=== PATIENT | male | born 1940 | race Caucasian/White ===

== ENCOUNTER 2022-03-21 11:50 | Observation (INO) | payer MEDICARE, SELFPAY ==
[2022-03-21] VITALS (22 sets, daily range): BP systolic 132–162; BP diastolic 70–86; PULSE 56–94; RESP 12–20; TEMP 36–36.2; O2SAT 92–100
--- NOTE | ~2022-03-21 | XR_ITS ---
EXAMINATION: XR chest 2V DATE: 03/21/2022 12:24 INDICATION: Altered mental status TECHNIQUE: frontal and lateral views of the chest were obtained. COMPARISON: None FINDINGS: Costochondral calcification project over the lower lung zones. The lungs are clear with no focal airs pace opacities, pulmonary edema, pleural effusion or pneumothorax. The cardiomediastinal silhouette i s normal. 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 IMPRESSION: 1. No acute cardiopulmonary disease. Reviewed, dictated and finalized at location B.
--- NOTE | ~2022-03-21 | CT_ITS ---
EXAMINATION: CT brain wo con INDICATION: Altered mental status COMPARISON: None TECHNIQUE: Standard unenhanced head CT. The dose-length product (DLP) was 605.33 mGy-cm. The mA was a djusted according to patient size. Iterative reconstruction technique was employed. FINDINGS: There is no acute intraparenchymal hemorrhage. No evidence of mass lesion. No evidence of a cute infarction. There is mild periventricular and subcortical hypodensity probably related to small vessel ischemic disease. There is mild prominence of the sulci and ventricles related to cerebral atr ophy. Intracranial calcified cerebral atherosclerosis is noted. There are no extra-axial collections. There is no mass effect or midline shift. The orbits and soft tissues are unremarkable. The visualiz ed sinuses and mastoid air cells are well aerated. IMPRESSION: 1. No acute intracranial abnormality. 2. Age related findings. Reviewed, dictated and finalized at location A.
--- NOTE | ~2022-03-21 | MR_ITS ---
EXAMINATION: MR brain/brain stem wo con DATE: 03/24/2022 08:12 INDICATION: Altered mental status. TECHNIQUE: Magnetic resonance imaging (MRI) of the brain and brainstem was performed without intraven ous contrast. 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 There are scattered areas of nonspeci fic increased T2-weighted signal intensity in the cerebral white matter, which is within normal limit s for the patient's age. There is no intracranial hemorrhage, acute infarction, or abnormal intracran ial mass lesion. The ventricles are normal in size. There is mild mucosal thickening in the paranasal sinuses. There are likely changes of ocular lens replacement surgeries. The mastoid air cells are no rmal. IMPRESSION: 1. 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 Reviewed, dictated and finalized at location A.
--- NOTE | 2022-03-21 12:04 | ECG_ITS ---
Measurements Intervals [place] Rate: 75 P: 57 NE: 203 QRS: 8 QRSD: 89 T: 56 QT: 419 QTc: 469 Interpretive Statements SINUS RHYTHM WITH OCCASIONAL VENTRICULAR PREMATURE COMPLEXES NO PREVIOUS ECG AVAILABLE FOR COMPARISON Electronically Signed On 03-22-2022 14:32:40 CDT by Diana De La Cruz M.D.
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
--- NOTE | 2022-03-21 12:14 | PC.NURSE ---
Daughter of patient lives in [place]. [phone]
[2022-03-21 12:22] LABS: Basophils Percent Auto 0.4 % (0.2-1.2); Eosinophils Absolute Auto 0.1 K/mm3 (0-0.3); Eosinophils Percent Auto 0.5 % (0-4.4); Hematocrit 42.1 % (42.0-52.0); Hemoglobin 13.4 g/dL (14.0-18.0); Immature Granulocyte Absolute 0.03 K/mm3 (0.00-0.031); Immature Granulocyte Percent A 0.3 % (0-0.5); Lymphocytes Absolute Auto 1.84 K/mm3 (0.9-3.2); Lymphocytes Percent Auto 18.9 % (18.3-44.2); Mean Corpuscular HGB Conc 31.8 g/dl (32-36); Mean Corpuscular Hemoglobin 31.3 pg (26-34); Mean Corpuscular Volume 98.4 fl (80-100); Mean Platelet Volume 10.2 fl (7.4-10.4); Monocytes Absolute Auto 0.8 K/mm3 (0.1-0.6); Monocytes Percent Auto 8.1 % (2.6-8.5); Neutrophils Percent Auto 71.8 % (45.5-73.1); Platelet Count Result 250 k/mm3 (150-375); Red Blood Count 4.28 M/mm3 (4.6-6.20); Red Cell Distribution Width 13.7 % (11.5-14.5); White Blood Count 9.7 K/mm3 (4.5-10.0)
[2022-03-21 12:29] LABS: Ammonia < 9 umol/L (9-30)
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
[2022-03-21 12:31] LABS: Alanine Aminotransferase 18 U/L (6-50); Albumin Level 4.2 g/dL (3.5-5.1); Alkaline Phosphatase 76 U/L (38-126); Anion Gap 23 mmol/L (8-16); Aspartate Amino Transferase 33 U/L (17-59); Bilirubin,Total 1.3 mg/dL (0.2-1.3); Blood Urea Nitrogen 17 mg/dL (9-20); Calcium 9.5 mg/dL (8.4-10.2); Carbon Dioxide 15 mmol/L (22-30); Chloride 105 mmol/L (98-107); Creatine Kinase 172 U/L (55-170); Estimated Glomerular Filt Rate > 60; Glucose 82 mg/dL (65-110); Potassium 3.5 mmol/L (3.4-5.0); Sodium 143 mmol/L (137-145)
[2022-03-21 12:32] LABS: Acetaminophen < 10 ug/mL (10-30); Ethanol < 10 mg/dL (<10); Salicylate < 1.0 mg/dL (2-20)
[2022-03-21 12:33] LABS: INR 1.1; Prothrombin Time 13.6 Seconds (11.1-14.7)
[2022-03-21] MEDS: SODIUM CHLORIDE 0.9% IV 1,000 ML 999 ML IV CONT ×2 (12:38→13:53)
[2022-03-21 12:43] LABS: Troponin I < 0.012 ng/mL (0.000-0.034)
[2022-03-21 12:45] LABS: Lactic Acid Reflex 1.9 mmol/L (0.7-2.0)
[2022-03-21 12:52] LABS: Glucose Point of Care 66 mg/dl (65-105)
[2022-03-21 13:02] LABS: Thyroid Stimulating Hormone 0.515 uIU/mL (0.465-4.680)
--- NOTE | 2022-03-21 13:13 | PC.NURSE ---
catracho chips fruit and drink given to patient at this time
[2022-03-21 14:10] LABS: SARS-CoV-2 RNA PCR Negative
[2022-03-21 14:33] LABS: Add Urine Microscopic? YES; Appearance Urine Clear (Clear); Bilirubin Urine Negative (Negative); Blood Urine 2+ (Negative); Color Urine Yellow (Yellow); Glucose Urine UA Negative (Negative); Ketones Urine 2+ mg/dL (Negative); Leukocyte Esterase Ur Negative LEU/UL (Negative); Mucus Urine Rare /lpf; Nitrate Urine Negative (Negative); Protein Urine 1+ mg/dL (Negative); RBC Urine >75 /hpf (0-2); Urobilinogen Urine Negative mg/dL (<2.0); WBC Urine 0-3 /hpf
[2022-03-21 14:55] LABS: Barbiturate Screen Urine Negative (Negative)
[2022-03-21 14:57] LABS: Amphetamine Screen Urine Negative (Negative); Cannabinoid Screen Urine Negative (Negative); Cocaine Screen Urine Negative (Negative); Methadone Screen Urine Negative (Negative); Opiate Screen Urine Negative (Negative); Phencyclidine Screen Urine Negative (Negative)
--- NOTE | 2022-03-21 15:06 | PCCCNOTE ---
Tay Kim, number: [phone] is only current contact information.
[2022-03-21 15:07] LABS: Benzodiazepines Screen Urine Negative (Negative)
--- NOTE | 2022-03-21 16:29 | PC.NURSE ---
Attempt to call daughter, Kim, who lives in [place] to assist with pt admission. Call directed to voicemail without answer.
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
--- NOTE | 2022-03-22 00:23 | PC.NURSE ---
Pt admitted today for confusion. Pt states that he wants us to help him find his wallet and phone. Pt is estranged from family so care coordination will be working on finding placement. Pt can be impulsive. Pt uses call light but does not wait for staff to come help. Pt is on bed alarm zone 2. Will continue to monitor pt.
[2022-03-22 05:34] VITALS: BP 124/75; PULSE 74; RESP 16; TEMP 36.8; O2SAT 100
[2022-03-22 06:29] LABS: Basophils Percent Auto 0.4 % (0.2-1.2); Eosinophils Absolute Auto 0.2 K/mm3 (0-0.3); Eosinophils Percent Auto 2.5 % (0-4.4); Hematocrit 35.8 % (42.0-52.0); Hemoglobin 11.5 g/dL (14.0-18.0); Immature Granulocyte Absolute 0.04 K/mm3 (0.00-0.031); Immature Granulocyte Percent A 0.6 % (0-0.5); Lymphocytes Absolute Auto 1.26 K/mm3 (0.9-3.2); Lymphocytes Percent Auto 17.8 % (18.3-44.2); Mean Corpuscular HGB Conc 32.1 g/dl (32-36); Mean Corpuscular Hemoglobin 30.7 pg (26-34); Mean Corpuscular Volume 95.5 fl (80-100); Mean Platelet Volume 10.3 fl (7.4-10.4); Monocytes Absolute Auto 0.7 K/mm3 (0.1-0.6); Monocytes Percent Auto 9.5 % (2.6-8.5); Neutrophils Absolute Auto 4.9 K/mm3 (1.3-6.7); Neutrophils Percent Auto 69.2 % (45.5-73.1); Platelet Count Result 181 k/mm3 (150-375); Red Blood Count 3.75 M/mm3 (4.6-6.20); Red Cell Distribution Width 13.5 % (11.5-14.5); White Blood Count 7.1 K/mm3 (4.5-10.0)
[2022-03-22 06:45] LABS: Lactic Acid Reflex 0.7 mmol/L (0.7-2.0)
[2022-03-22 06:53] LABS: Alanine Aminotransferase 15 U/L (6-50); Albumin Level 3.3 g/dL (3.5-5.1); Alkaline Phosphatase 67 U/L (38-126); Anion Gap 9 mmol/L (8-16); Aspartate Amino Transferase 30 U/L (17-59); Bilirubin,Total 0.9 mg/dL (0.2-1.3); Blood Urea Nitrogen 9 mg/dL (9-20); Calcium 8.7 mg/dL (8.4-10.2); Carbon Dioxide 21 mmol/L (22-30); Chloride 111 mmol/L (98-107); Estimated Glomerular Filt Rate > 60; Glucose 76 mg/dL (65-110); Magnesium 1.7 mg/dL (1.6-2.3); Potassium 4.6 mmol/L (3.4-5.0); Sodium 141 mmol/L (137-145)
[2022-03-22] MEDS: SODIUM CHLORIDE 0.9% IV 1,000 ML 100 ML IV CONT (06:58)
[2022-03-22 07:35] LABS: Thyroid Stimulating Hormone Reflex 0.689 uIU/mL (0.465-4.68)
--- NOTE | 2022-03-22 13:01 | PC.NURSE ---
Call received from Dr. Zhang. Pt seen over the weekend, ok to be taken care of outpatient.
[2022-03-22 14:00] VITALS: BP 132/62; PULSE 61; RESP 16; TEMP 36.9; O2SAT 100
--- NOTE | 2022-03-22 17:37 | PM.IMPN ---
Progress Note: A&P Assessment and Plan (1) Dementia: Code(s): F03.90 - Unspecified dementia, unspecified severity, without behavioral disturbance, psychotic disturbance, mood disturbance, and anxiety Status: Acute Assessment and Plan: Unknown mental baseline, patient appears to be pleasantly demented without any acute delirium, does not appear to be competent to make decisions regarding his health and a safe discharge is unable to be completed at this time. CT head negative for any abnormality. Complete workup negative for any acute, reversible causes of dementia. Will consult Neurology to confirm no acute etiology to patient's mentation. May need psychiatry workup as well to leave early define competence. Plan Called and spoke with daughter and son, below: Kim [phone] Jm [phone] Patient has been estranged from his family for years, was in a long-term relationship with a girlfriend who recently dumped him. Currently has no one significant in his life who can make decisions for him and children are not interested in being guardians at this time. Therefore, patient will need to be deemed legally incompetent, possibly by Psychiatry and the legal guardian will need to be placed who can be patient's power of compliance aide. At that time, patient will need to establish residence in [place], confirm Medicare enrollment, and be placed in a memory care facility. I anticipate that an ethics committee will need to be initiated to start the process for this patient's guardianship and ultimately get him a safe discharge. DVT prophylaxis with SCDs GI prophylaxis not indicated Code status full code Subjective Date/time seen: 03/22/22 17:37 Interval history: Patient pleasantly confused, requesting to go home today. Per chart and nursing staff, patient does not have a home in [place] or [place], he is from [place]. No overnight events noted. No chest pain or shortness of breath. No nausea, vomiting or diarrhea. No fevers or chills. Review of Systems Review of Systems: ROS unobtainable: Yes unobtainable due to mental status Exam Narrative: General: No acute distress, alert and oriented to self, unsure of baseline HEENT: Atraumatic, normocephalic, mucous membranes moist CV: Regular rate and rhythm, S1, S2 Lungs: Clear to auscultation bilaterally, no rales or crackles noted, no wheezes, good air entry Abdomen: Soft, nontender, nondistended Extremities: Normal to inspection Skin: No rashes noted, no lesions or wounds seen Psych: Euthymic, normal affect Neuro: Cranial nerves 2-12 grossly intact, strength +5/5 upper and lower extremities bilaterally Objective Data Vital Signs Vital Signs: Vital Signs - 24 hr 03/21/22 21:13 03/21/22 20:01 03/22/22 05:34 Temperature 97.1 F L 98.2 F Pulse Rate 65 74 Respiratory Rate 20 16 Blood Pressure 132/70 124/75 Pulse Oximetry 100 100 Oxygen Delivery Room Air 03/22/22 08:00 03/22/22 14:00 Temperature 98.5 F Pulse Rate 61 Respiratory Rate 16 Blood Pressure 132/62 Pulse Oximetry 100 Oxygen Delivery Room Air Intake/Output Intake/Output: Intake & Output 03/19/22 03/20/22 03/21/22 03/22/22 23:59 23:59 23:59 23:59 Intake Total 2340 100 Balance 2340 100 Meds/Results Medications: Active Medications Generic Name Dose Route Start Last Admin Trade Name Freq PRN Reason Stop Dose Admin Acetaminophen 650 mg 03/21/22 14:05 Acetaminophen 325 Mg Tablet PO Q4H PRN Mild Pain (1-3) or Fever Sodium Chloride 1,000 mls @ 100 mls/hr 03/22/22 00:15 03/22/22 17:29 Normal Saline Iv IV CONT Not Given .Q10H [facility] Radiology Results: ITS Impressions Head CT 03/21/22 12:20 IMPRESSION: 1. No acute intracranial abnormality. 2. Age related findings. Chest X-Ray 03/21/22 12:28 IMPRESSION: 1. No acute cardiopulmonary disease. Labs Labs: Laboratory Results - last 24 hr
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
[2022-03-22 21:38] VITALS: BP 151/72; PULSE 75; RESP 20; TEMP 36.4; O2SAT 99
--- NOTE | 2022-03-23 00:27 | PC.NURSE ---
Pt continues to be impulsive. Pt no longer using call light when getting up. Education about the importance of using call light reinforced. Will continue to monitor pt.
[2022-03-23 06:00] VITALS: BP 137/69; PULSE 80; RESP 16; TEMP 36.3; O2SAT 96
[2022-03-23 06:32] LABS: Basophils Percent Auto 0.3 % (0.2-1.2); Eosinophils Absolute Auto 0.2 K/mm3 (0-0.3); Eosinophils Percent Auto 1.6 % (0-4.4); Hematocrit 37.8 % (42.0-52.0); Hemoglobin 12.3 g/dL (14.0-18.0); Immature Granulocyte Absolute 0.03 K/mm3 (0.00-0.031); Immature Granulocyte Percent A 0.3 % (0-0.5); Lymphocytes Absolute Auto 1.19 K/mm3 (0.9-3.2); Mean Corpuscular HGB Conc 32.5 g/dl (32-36); Mean Corpuscular Hemoglobin 30.8 pg (26-34); Mean Corpuscular Volume 94.5 fl (80-100); Mean Platelet Volume 10.4 fl (7.4-10.4); Monocytes Absolute Auto 0.6 K/mm3 (0.1-0.6); Monocytes Percent Auto 6.5 % (2.6-8.5); Neutrophils Absolute Auto 7.9 K/mm3 (1.3-6.7); Neutrophils Percent Auto 79.3 % (45.5-73.1); Platelet Count Result 182 k/mm3 (150-375); Red Cell Distribution Width 13.4 % (11.5-14.5); White Blood Count 9.9 K/mm3 (4.5-10.0)
[2022-03-23 06:48] LABS: Alanine Aminotransferase 15 U/L (6-50); Albumin Level 3.4 g/dL (3.5-5.1); Alkaline Phosphatase 72 U/L (38-126); Anion Gap 11 mmol/L (8-16); Aspartate Amino Transferase 27 U/L (17-59); Bilirubin,Total 0.9 mg/dL (0.2-1.3); Blood Urea Nitrogen 4 mg/dL (9-20); Calcium 8.7 mg/dL (8.4-10.2); Carbon Dioxide 22 mmol/L (22-30); Chloride 107 mmol/L (98-107); Estimated Glomerular Filt Rate > 60; Glucose 84 mg/dL (65-110); Potassium 3.6 mmol/L (3.4-5.0); Sodium 140 mmol/L (137-145)
[2022-03-23 07:54] LABS: Folic Acid 15.4 ng/mL (2.76->20); Vitamin B12 > 1000.0 pg/mL (239-931)
--- NOTE | 2022-03-23 09:47 | PM.IMPN ---
Progress Note: A&P Assessment and Plan (1) Dementia: Code(s): F03.90 - Unspecified dementia, unspecified severity, without behavioral disturbance, psychotic disturbance, mood disturbance, and anxiety Status: Acute Assessment and Plan: Unknown mental baseline, patient appears to be pleasantly demented without any acute delirium, does not appear to be competent to make decisions regarding his health and a safe discharge is unable to be completed at this time. CT head negative for any abnormality. Complete workup negative for any acute, reversible causes of dementia. Will consult Neurology to confirm no acute etiology to patient's mentation. B12, folate, TSH, ammonia all within normal limits, B1 level pending Plan 03/22/2022: Called and spoke with daughter and son, below: Kim [phone] Jm [phone] Patient has been estranged from his family for years, was in a long-term relationship with a girlfriend who recently dumped him. Currently has no one significant in his life who can make decisions for him and children are not interested in being guardians at this time. Therefore, patient will need to be deemed legally incompetent, possibly by Psychiatry and the legal guardian will need to be placed who can be patient's power of real estate associate attorney. At that time, patient will need to establish residence in [place], confirm Medicare enrollment, and be placed in a memory care facility. I anticipate that an ethics committee will need to be initiated to start the process for this patient's guardianship and ultimately get him a safe discharge. See care coordination note for further details. DVT prophylaxis with SCDs GI prophylaxis not indicated Code status full code Subjective Date/time seen: 03/23/22 09:47 Interval history: No overnight events noted. No chest pain or shortness of breath. No nausea, vomiting or diarrhea. No fevers or chills. Patient alert oriented to self only. He is asking when we can help him find a home. Review of Systems Review of Systems: 12 point review of systems was assessed and was negative except as noted in the HPI Exam Narrative: General: No acute distress, alert and oriented to self, unsure of baseline HEENT: Atraumatic, normocephalic, mucous membranes moist CV: Regular rate and rhythm, S1, S2 Lungs: Clear to auscultation bilaterally, no rales or crackles noted, no wheezes, good air entry Abdomen: Soft, nontender, nondistended Extremities: Normal to inspection Skin: No rashes noted, no lesions or wounds seen Psych: Euthymic, normal affect Neuro: Cranial nerves 2-12 grossly intact, strength +5/5 upper and lower extremities bilaterally Objective Data Vital Signs Vital Signs: Vital Signs - 24 hr 03/22/22 14:00 03/22/22 21:38 03/22/22 20:06 Temperature 98.5 F 97.5 F L Pulse Rate 61 75 Respiratory Rate 16 20 Blood Pressure 132/62 151/72 H Pulse Oximetry 100 99 Oxygen Delivery Room Air 03/23/22 06:00 Temperature 97.4 F L Pulse Rate 80 Respiratory Rate 16 Blood Pressure 137/69 Pulse Oximetry 96 Oxygen Delivery Intake/Output Intake/Output: Intake & Output 03/20/22 03/21/22 03/22/22 03/23/22 23:59 23:59 23:59 23:59 Intake Total 2340 220 200 Balance 2340 220 200 Meds/Results Medications: Active Medications Generic Name Dose Route Start Last Admin Trade Name Navjotq PRN Reason Stop Dose Admin Acetaminophen 650 mg 03/21/22 14:05 Acetaminophen 325 Mg Tablet PO Q4H PRN Mild Pain (1-3) or Fever Radiology Results: ITS Impressions Head CT 03/21/22 12:20 IMPRESSION: 1. No acute intracranial abnormality. 2. Age related findings. Chest X-Ray 03/21/22 12:28 IMPRESSION: 1. No acute cardiopulmonary disease. Labs Labs: Laboratory Results - last 24 hr 03/23/22 03/23/22 05:57 05:57 WBC 9.9 RBC 4.00 L Hgb 12.3 L Hct 37.8 L MCV 94.5 MCH 30.8 MCHC 32.5 RDW 13.4
[2022-03-23 14:00] VITALS: BP 144/81; PULSE 94; RESP 16; TEMP 36.8; O2SAT 96
[2022-03-23 22:00] VITALS: BP 136/71; PULSE 72; RESP 18; TEMP 36.1; O2SAT 98
[2022-03-24 06:00] VITALS: BP 137/57; PULSE 76; RESP 18; TEMP 36; O2SAT 98
[2022-03-24 06:45] LABS: Basophils Percent Auto 0.2 % (0.2-1.2); Eosinophils Absolute Auto 0.1 K/mm3 (0-0.3); Eosinophils Percent Auto 1.4 % (0-4.4); Hematocrit 39.7 % (42.0-52.0); Hemoglobin 12.8 g/dL (14.0-18.0); Immature Granulocyte Absolute 0.03 K/mm3 (0.00-0.031); Immature Granulocyte Percent A 0.3 % (0-0.5); Lymphocytes Absolute Auto 1.26 K/mm3 (0.9-3.2); Lymphocytes Percent Auto 12.8 % (18.3-44.2); Mean Corpuscular HGB Conc 32.2 g/dl (32-36); Mean Corpuscular Volume 96.1 fl (80-100); Monocytes Absolute Auto 0.7 K/mm3 (0.1-0.6); Monocytes Percent Auto 7.5 % (2.6-8.5); Neutrophils Absolute Auto 7.6 K/mm3 (1.3-6.7); Neutrophils Percent Auto 77.8 % (45.5-73.1); Platelet Count Result 174 k/mm3 (150-375); Red Blood Count 4.13 M/mm3 (4.6-6.20); Red Cell Distribution Width 13.7 % (11.5-14.5); White Blood Count 9.8 K/mm3 (4.5-10.0)
[2022-03-24 06:55] LABS: Alanine Aminotransferase 14 U/L (6-50); Albumin Level 3.3 g/dL (3.5-5.1); Alkaline Phosphatase 67 U/L (38-126); Anion Gap 12 mmol/L (8-16); Aspartate Amino Transferase 21 U/L (17-59); Blood Urea Nitrogen 5 mg/dL (9-20); Calcium 8.8 mg/dL (8.4-10.2); Carbon Dioxide 27 mmol/L (22-30); Chloride 102 mmol/L (98-107); Estimated CRCL calculation 74 ml/min; Estimated Glomerular Filt Rate > 60; Glucose 84 mg/dL (65-110); Sodium 141 mmol/L (137-145)
--- NOTE | 2022-03-24 10:19 | PM.IMPN ---
Progress Note: A&P Assessment and Plan (1) Dementia: Code(s): F03.90 - Unspecified dementia, unspecified severity, without behavioral disturbance, psychotic disturbance, mood disturbance, and anxiety Status: Acute Assessment and Plan: Unknown mental baseline, patient appears to be pleasantly demented without any acute delirium, does not appear to be competent to make decisions regarding his health and a safe discharge is unable to be completed at this time. CT head negative for any abnormality. Complete workup negative for any acute, reversible causes of dementia. Will consult Neurology to confirm no acute etiology to patient's mentation. B12, folate, TSH, ammonia all within normal limits, B1 level pending (2) Hypokalemia: Code(s): E87.6 - Hypokalemia Status: Acute Assessment and Plan: likely secondary to decreased p.o. intake, replete and recheck (3) Alcohol abuse: Code(s): F10.10 - Alcohol abuse, uncomplicated Status: Acute Assessment and Plan: no signs of withdrawal, continue to monitor (4) Hypertension: Code(s): I10 - Essential (primary) hypertension Status: Acute Assessment and Plan: controlled on no medications (5) Hyperlipidemia: Code(s): E78.5 - Hyperlipidemia, unspecified Status: Acute Assessment and Plan: will check lipid panel (6) Hypoalbuminemia: Code(s): E88.09 - Other disorders of plasma-protein metabolism, not elsewhere classified Status: Acute Assessment and Plan: albumin was normal upon admission, dropping since he has been here as well as associated hypokalemia, poor p.o. intake secondary to his dietary preference is not being met by our menu, will give diet supplement with meals, continue to monitor Plan 03/22/2022: Called and spoke with daughter and son, below: Kim [phone] Jm [phone] Patient has been estranged from his family for years, was in a long-term relationship with a girlfriend who recently dumped him. Currently has no one significant in his life who can make decisions for him and children are not interested in being guardians at this time. Therefore, patient will need to be deemed legally incompetent, possibly by Psychiatry and the legal guardian will need to be placed who can be patient's power of insurance attorney. At that time, patient will need to establish residence in [place], confirm Medicare enrollment, and be placed in a memory care facility. I anticipate that an ethics committee will need to be initiated to start the process for this patient's guardianship and ultimately get him a safe discharge. See care coordination note for further details. DVT prophylaxis with SCDs GI prophylaxis not indicated Code status full code Subjective Date/time seen: 03/24/22 10:19 Interval history: No overnight events noted. No chest pain or shortness of breath. No nausea, vomiting or diarrhea. No fevers or chills. Patient alert oriented to self only. He is asking when we can help him find a home. Review of Systems Review of Systems: 12 point review of systems was assessed and was negative except as noted in the HPI Exam Narrative: General: No acute distress, alert and oriented to self, unsure of baseline HEENT: Atraumatic, normocephalic, mucous membranes moist CV: Regular rate and rhythm, S1, S2 Lungs: Clear to auscultation bilaterally, no rales or crackles noted, no wheezes, good air entry Abdomen: Soft, nontender, nondistended Extremities: Normal to inspection Skin: No rashes noted, no lesions or wounds seen Psych: Euthymic, normal affect Neuro: Cranial nerves 2-12 grossly intact, strength +5/5 upper and lower extremities bilaterally Objective Data Vital Signs Vital Signs: Vital Signs - 24 hr 03/23/22 14:00 03/23/22 20:00 03/23/22 22:00 Temperature 98.3 F 97.0 F L Pulse Rate 94 72 Respiratory Rate 16 18 Blood Pressure 144/81 H
[2022-03-24] MEDS: POTASSIUM CHLORIDE 20 MEQ TABLET 40 MEQ PO (12:25)
[2022-03-24 14:00] VITALS: BP 136/72; PULSE 82; RESP 16; TEMP 36.7; O2SAT 99
[2022-03-24 21:36] VITALS: BP 148/75; PULSE 76; RESP 20; TEMP 36.6; O2SAT 98
[2022-03-25 04:40] VITALS: BP 138/72; PULSE 74; RESP 20; TEMP 36.6; O2SAT 96
[2022-03-25 09:36] LABS: Basophils Percent Auto 0.2 % (0.2-1.2); Eosinophils Absolute Auto 0.2 K/mm3 (0-0.3); Eosinophils Percent Auto 1.7 % (0-4.4); Hematocrit 38.6 % (42.0-52.0); Hemoglobin 12.4 g/dL (14.0-18.0); Immature Granulocyte Absolute 0.04 K/mm3 (0.00-0.031); Immature Granulocyte Percent A 0.4 % (0-0.5); Lymphocytes Absolute Auto 1.03 K/mm3 (0.9-3.2); Lymphocytes Percent Auto 11.1 % (18.3-44.2); Mean Corpuscular HGB Conc 32.1 g/dl (32-36); Mean Corpuscular Hemoglobin 30.3 pg (26-34); Mean Corpuscular Volume 94.4 fl (80-100); Mean Platelet Volume 11.3 fl (7.4-10.4); Monocytes Absolute Auto 0.6 K/mm3 (0.1-0.6); Monocytes Percent Auto 6.5 % (2.6-8.5); Neutrophils Absolute Auto 7.5 K/mm3 (1.3-6.7); Neutrophils Percent Auto 80.1 % (45.5-73.1); Platelet Count Result 178 k/mm3 (150-375); Red Blood Count 4.09 M/mm3 (4.6-6.20); Red Cell Distribution Width 13.5 % (11.5-14.5); White Blood Count 9.3 K/mm3 (4.5-10.0)
[2022-03-25 09:53] LABS: Alanine Aminotransferase 13 U/L (6-50); Albumin Level 3.4 g/dL (3.5-5.1); Alkaline Phosphatase 68 U/L (38-126); Anion Gap 10 mmol/L (8-16); Aspartate Amino Transferase 19 U/L (17-59); Blood Urea Nitrogen 8 mg/dL (9-20); Calcium 8.8 mg/dL (8.4-10.2); Carbon Dioxide 26 mmol/L (22-30); Chloride 103 mmol/L (98-107); Estimated CRCL calculation 74 ml/min; Estimated Glomerular Filt Rate > 60; Glucose 104 mg/dL (65-110); Potassium 3.6 mmol/L (3.4-5.0); Sodium 139 mmol/L (137-145)
--- NOTE | 2022-03-25 10:32 | PM.IMPN ---
Progress Note: A&P Assessment and Plan (1) Dementia: Code(s): F03.90 - Unspecified dementia, unspecified severity, without behavioral disturbance, psychotic disturbance, mood disturbance, and anxiety Status: Acute Assessment and Plan: Unknown mental baseline, patient appears to be pleasantly demented without any acute delirium, does not appear to be competent to make decisions regarding his health and a safe discharge is unable to be completed at this time. CT head negative for any abnormality. Complete workup negative for any acute, reversible causes of dementia. 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, stable (2) Hypokalemia: Code(s): E87.6 - Hypokalemia Status: Acute Assessment and Plan: Resolved, monitor (3) Alcohol abuse: Code(s): F10.10 - Alcohol abuse, uncomplicated Status: Acute Assessment and Plan: no signs of withdrawal, continue to monitor (4) Hypertension: Code(s): I10 - Essential (primary) hypertension Status: Acute Assessment and Plan: controlled on no medications (5) Hyperlipidemia: Code(s): E78.5 - Hyperlipidemia, unspecified Status: Acute Assessment and Plan: will check lipid panel (6) Hypoalbuminemia: Code(s): E88.09 - Other disorders of plasma-protein metabolism, not elsewhere classified Status: Acute Assessment and Plan: Improving with diet supplementation, monitor Plan 03/22/2022: Called and spoke with daughter and son, below: Kim [phone] Jm [phone] Patient has been estranged from his family for years, was in a long-term relationship with a girlfriend who recently dumped him. Currently has no one significant in his life who can make decisions for him and children are not interested in being guardians at this time. Therefore, patient will need to be deemed legally incompetent, possibly by Psychiatry and the legal guardian will need to be placed who can be patient's power of assistant county attorney. At that time, patient will need to establish residence in [place], confirm Medicare enrollment, and be placed in a memory care facility. I anticipate that an ethics committee will need to be initiated to start the process for this patient's guardianship and ultimately get him a safe discharge. See care coordination note for further details. DVT prophylaxis with SCDs GI prophylaxis not indicated Code status full code Subjective Date/time seen: 03/25/22 10:32 Interval history: No overnight events noted. No chest pain or shortness of breath. No nausea, vomiting or diarrhea. No fevers or chills. Review of Systems Review of Systems: 12 point review of systems was assessed and was negative except as noted in the HPI Exam Narrative: General: No acute distress, alert and oriented to self, unsure of baseline HEENT: Atraumatic, normocephalic, mucous membranes moist CV: Regular rate and rhythm, S1, S2 Lungs: Clear to auscultation bilaterally, no rales or crackles noted, no wheezes, good air entry Abdomen: Soft, nontender, nondistended Extremities: Normal to inspection Skin: No rashes noted, no lesions or wounds seen Psych: Euthymic, normal affect Neuro: Cranial nerves 2-12 grossly intact, strength +5/5 upper and lower extremities bilaterally Objective Data Vital Signs Vital Signs: Vital Signs - 24 hr 03/24/22 14:00 03/24/22 20:00 03/24/22 21:36 Temperature 98.1 F 97.8 F Pulse Rate 82 76 Respiratory Rate 16 20 Blood Pressure 136/72 148/75 H Pulse Oximetry 99 98 Oxygen Delivery Room Air 03/25/22 04:40 Temperature 97.8 F Pulse Rate 74 Respiratory Rate 20 Blood Pressure 138/72 Pulse Oximetry 96 Oxygen Delivery Intake/Output Intake/Output: Intake & Output 03/22/22 03/23/2203/11
[2022-03-25 11:52] LABS: Cholesterol 182 mg/dL (0-200); HDL Direct 48 mg/dL; Triglycerides 60 mg/dL (<150)
[2022-03-25 12:03] LABS: LDL Cholesterol Direct 127 mg/dL
[2022-03-25 13:40] VITALS: BP 128/64; PULSE 77; RESP 18; TEMP 36.7; O2SAT 97
[2022-03-25 21:24] VITALS: BP 154/86; PULSE 76; RESP 20; TEMP 36.6; O2SAT 97
[2022-03-25 23:41] LABS: Myoglobin, Urine <27 mcg/L (<28)
[2022-03-26 05:17] VITALS: BP 134/74; PULSE 80; RESP 16; TEMP 36.3; O2SAT 93
[2022-03-26 07:51] LABS: Basophils Percent Auto 0.3 % (0.2-1.2); Eosinophils Absolute Auto 0.3 K/mm3 (0-0.3); Eosinophils Percent Auto 3.2 % (0-4.4); Hematocrit 40.3 % (42.0-52.0); Hemoglobin 13.3 g/dL (14.0-18.0); Immature Granulocyte Absolute 0.03 K/mm3 (0.00-0.031); Immature Granulocyte Percent A 0.3 % (0-0.5); Lymphocytes Absolute Auto 1.44 K/mm3 (0.9-3.2); Lymphocytes Percent Auto 15.7 % (18.3-44.2); Mean Corpuscular Hemoglobin 31.7 pg (26-34); Mean Corpuscular Volume 96.2 fl (80-100); Mean Platelet Volume 11.4 fl (7.4-10.4); Monocytes Absolute Auto 0.6 K/mm3 (0.1-0.6); Monocytes Percent Auto 6.8 % (2.6-8.5); Neutrophils Absolute Auto 6.8 K/mm3 (1.3-6.7); Neutrophils Percent Auto 73.7 % (45.5-73.1); Platelet Count Result 193 k/mm3 (150-375); Red Blood Count 4.19 M/mm3 (4.6-6.20); Red Cell Distribution Width 13.5 % (11.5-14.5); White Blood Count 9.2 K/mm3 (4.5-10.0)
--- NOTE | 2022-03-26 08:04 | PM.IMPN ---
Progress Note: A&P Assessment and Plan (1) Dementia: Code(s): F03.90 - Unspecified dementia, unspecified severity, without behavioral disturbance, psychotic disturbance, mood disturbance, and anxiety Status: Acute Assessment and Plan: Unknown mental baseline, patient appears to be pleasantly demented without any acute delirium, does not appear to be competent to make decisions regarding his health and a safe discharge is unable to be completed at this time. CT head negative for any abnormality. Complete workup negative for any acute, reversible causes of dementia. 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, stable (2) Hypokalemia: Code(s): E87.6 - Hypokalemia Status: Acute Assessment and Plan: back down to 3.3, will replace and recheck, likely secondary to poor po intake here (3) Alcohol abuse: Code(s): F10.10 - Alcohol abuse, uncomplicated Status: Acute Assessment and Plan: no signs of withdrawal, continue to monitor (4) Hypertension: Code(s): I10 - Essential (primary) hypertension Status: Acute Assessment and Plan: controlled on no medications (5) Hyperlipidemia: Code(s): E78.5 - Hyperlipidemia, unspecified Status: Acute Assessment and Plan: will check lipid panel (6) Hypoalbuminemia: Code(s): E88.09 - Other disorders of plasma-protein metabolism, not elsewhere classified Status: Acute Assessment and Plan: Improving with diet supplementation, monitor Plan 03/22/2022: Called and spoke with daughter and son, below: Kim [phone] Jm [phone] Patient has been estranged from his family for years, was in a long-term relationship with a girlfriend who recently dumped him. Currently has no one significant in his life who can make decisions for him and children are not interested in being guardians at this time. Therefore, patient will need to be deemed legally incompetent, possibly by Psychiatry and the legal guardian will need to be placed who can be patient's power of workers compensation defense attorney. At that time, patient will need to establish residence in [place], confirm Medicare enrollment, and be placed in a memory care facility. I anticipate that an ethics committee will need to be initiated to start the process for this patient's guardianship and ultimately get him a safe discharge. See care coordination note for further details. DVT prophylaxis with SCDs GI prophylaxis not indicated Code status full code Subjective Date/time seen: 03/26/22 08:04 Interval history: No overnight events noted. No chest pain or shortness of breath. No nausea, vomiting or diarrhea. No fevers or chills. Review of Systems Review of Systems: 12 point review of systems was assessed and was negative except as noted in the HPI Exam Narrative: General: No acute distress, alert and oriented per baseline HEENT: Atraumatic, normocephalic, mucous membranes moist CV: Regular rate and rhythm, S1, S2 Lungs: Clear to auscultation bilaterally, no rales or crackles noted, no wheezes, good air entry Abdomen: Soft, nontender, nondistended Extremities: Normal to inspection Skin: No rashes noted, no lesions or wounds seen Psych: Euthymic, normal affect Objective Data Vital Signs Vital Signs: Vital Signs - 24 hr 03/25/22 13:40 03/25/22 20:00 03/25/22 21:24 Temperature 98.0 F 97.9 F Pulse Rate 77 76 Respiratory Rate 18 20 Blood Pressure 128/64 154/86 H Pulse Oximetry 97 97 Oxygen Delivery Room Air 03/26/22 05:17 Temperature 97.4 F L Pulse Rate 80 Respiratory Rate 16 Blood Pressure 134/74 Pulse Oximetry 93 Oxygen Delivery Intake/Output Intake/Output: Intake & Output 03/23/22 03/24/22 03/25/22 03/26/22 23:59 23:59 23:59 23:59 I
[2022-03-26 08:07] LABS: Alanine Aminotransferase 14 U/L (6-50); Albumin Level 3.4 g/dL (3.5-5.1); Alkaline Phosphatase 82 U/L (38-126); Anion Gap 8 mmol/L (8-16); Aspartate Amino Transferase 21 U/L (17-59); Bilirubin,Total 0.7 mg/dL (0.2-1.3); Blood Urea Nitrogen 7 mg/dL (9-20); Calcium 8.8 mg/dL (8.4-10.2); Carbon Dioxide 29 mmol/L (22-30); Chloride 100 mmol/L (98-107); Estimated CRCL calculation 74 ml/min; Estimated Glomerular Filt Rate > 60; Glucose 104 mg/dL (65-110); Potassium 3.3 mmol/L (3.4-5.0); Sodium 137 mmol/L (137-145)
[2022-03-26 13:21] VITALS: BP 116/72; PULSE 85; RESP 20; TEMP 36.4; O2SAT 96
[2022-03-26 21:41] VITALS: BP 129/78; PULSE 81; RESP 16; TEMP 37; O2SAT 96
[2022-03-27 06:00] VITALS: BP 131/66; PULSE 83; RESP 18; TEMP 36.6; O2SAT 86
[2022-03-27 06:37] LABS: Basophils Percent Auto 0.3 % (0.2-1.2); Eosinophils Absolute Auto 0.2 K/mm3 (0-0.3); Eosinophils Percent Auto 2.4 % (0-4.4); Hematocrit 40.2 % (42.0-52.0); Hemoglobin 12.9 g/dL (14.0-18.0); Immature Granulocyte Absolute 0.03 K/mm3 (0.00-0.031); Immature Granulocyte Percent A 0.5 % (0-0.5); Lymphocytes Absolute Auto 0.71 K/mm3 (0.9-3.2); Lymphocytes Percent Auto 10.8 % (18.3-44.2); Mean Corpuscular HGB Conc 32.1 g/dl (32-36); Mean Corpuscular Hemoglobin 30.9 pg (26-34); Mean Corpuscular Volume 96.4 fl (80-100); Mean Platelet Volume 11.4 fl (7.4-10.4); Monocytes Absolute Auto 0.6 K/mm3 (0.1-0.6); Monocytes Percent Auto 8.5 % (2.6-8.5); Neutrophils Absolute Auto 5.1 K/mm3 (1.3-6.7); Neutrophils Percent Auto 77.5 % (45.5-73.1); Platelet Count Result 191 k/mm3 (150-375); Red Blood Count 4.17 M/mm3 (4.6-6.20); Red Cell Distribution Width 13.5 % (11.5-14.5); White Blood Count 6.6 K/mm3 (4.5-10.0)
[2022-03-27 06:50] LABS: Alanine Aminotransferase 14 U/L (6-50); Albumin Level 3.2 g/dL (3.5-5.1); Alkaline Phosphatase 72 U/L (38-126); Anion Gap 9 mmol/L (8-16); Aspartate Amino Transferase 21 U/L (17-59); Bilirubin,Total 0.5 mg/dL (0.2-1.3); Blood Urea Nitrogen 7 mg/dL (9-20); Calcium 8.7 mg/dL (8.4-10.2); Carbon Dioxide 30 mmol/L (22-30); Chloride 100 mmol/L (98-107); Estimated CRCL calculation 74 ml/min; Estimated Glomerular Filt Rate > 60; Glucose 102 mg/dL (65-110); Potassium 3.1 mmol/L (3.4-5.0); Sodium 139 mmol/L (137-145)
[2022-03-27] MEDS: POTASSIUM CHLORIDE 20 MEQ TABLET 40 MEQ PO (09:07)
[2022-03-27] MEDS: ACETAMINOPHEN 325 MG TABLET 650 MG PO (09:07)
[2022-03-27] MEDS: POTASSIUM CHLORIDE INJ 40 MEQ in SODIUM CHLORIDE 0.9% IV 500 ML 130 MEQ IVPB (09:07)
--- NOTE | 2022-03-27 10:00 | PCNEURO ---
EEG on hold per Dr. Montenegro
[2022-03-27 15:00] VITALS: BP 119/65; PULSE 77; RESP 14; TEMP 36.8; O2SAT 93
--- NOTE | 2022-03-27 15:57 | PC.NURSE ---
Call from at Demetrio at [facility]. Rivas has been contacting his business asking about his car. Demetrio says that Solomon car is still at the [employer] in [place]. He was trying to help him get a rental car before he was admitted to the hospital, but realized he may not be oriented enough to be safe to drive a car. Stated he just wanted to make sure he was ok, and that if we were going to discharge him that he would gladly come get him and take him to his hotel. Unfortunately I was unable to give him information back. But told him I appreciated his call.
[2022-03-27 21:48] VITALS: BP 139/71; PULSE 83; RESP 16; TEMP 36.6; O2SAT 96
[2022-03-28 05:26] VITALS: BP 132/75; PULSE 88; RESP 24; TEMP 36.9; O2SAT 93
[2022-03-28 06:23] LABS: Basophils Percent Auto 0.5 % (0.2-1.2); Eosinophils Absolute Auto 0.2 K/mm3 (0-0.3); Eosinophils Percent Auto 2.7 % (0-4.4); Hematocrit 37.5 % (42.0-52.0); Hemoglobin 12.4 g/dL (14.0-18.0); Immature Granulocyte Absolute 0.02 K/mm3 (0.00-0.031); Immature Granulocyte Percent A 0.3 % (0-0.5); Lymphocytes Absolute Auto 0.94 K/mm3 (0.9-3.2); Lymphocytes Percent Auto 14.8 % (18.3-44.2); Mean Corpuscular HGB Conc 33.1 g/dl (32-36); Mean Corpuscular Hemoglobin 31.2 pg (26-34); Mean Corpuscular Volume 94.2 fl (80-100); Mean Platelet Volume 11.2 fl (7.4-10.4); Monocytes Absolute Auto 0.9 K/mm3 (0.1-0.6); Monocytes Percent Auto 13.7 % (2.6-8.5); Neutrophils Absolute Auto 4.3 K/mm3 (1.3-6.7); Platelet Count Result 182 k/mm3 (150-375); Red Blood Count 3.98 M/mm3 (4.6-6.20); Red Cell Distribution Width 13.4 % (11.5-14.5); White Blood Count 6.4 K/mm3 (4.5-10.0)
[2022-03-28 06:39] LABS: Alanine Aminotransferase 15 U/L (6-50); Alkaline Phosphatase 67 U/L (38-126); Anion Gap 11 mmol/L (8-16); Aspartate Amino Transferase 22 U/L (17-59); Bilirubin,Total 0.4 mg/dL (0.2-1.3); Blood Urea Nitrogen 8 mg/dL (9-20); Calcium 8.6 mg/dL (8.4-10.2); Carbon Dioxide 26 mmol/L (22-30); Chloride 103 mmol/L (98-107); Estimated CRCL calculation 74 ml/min; Estimated Glomerular Filt Rate > 60; Glucose 93 mg/dL (65-110); Potassium 3.7 mmol/L (3.4-5.0); Sodium 140 mmol/L (137-145)
--- NOTE | 2022-03-28 09:58 | PCNWS ---
Weekly nutritional screen. Patient is tolerating current Regular diet with adequate intake at 75% most meals, plus nutritional ice cream cups. No weight loss reported. No nutritional needs at this time.
--- NOTE | 2022-03-28 13:25 | PM.IMPN ---
Progress Note: A&P Assessment and Plan (1) Dementia: Code(s): F03.90 - Unspecified dementia, unspecified severity, without behavioral disturbance, psychotic disturbance, mood disturbance, and anxiety Status: Acute Assessment and Plan: Patient is at baseline mentation, stable for discharge since yesterday (2) Hypokalemia: Code(s): E87.6 - Hypokalemia Status: Acute Assessment and Plan: Resolved (3) Alcohol abuse: Code(s): F10.10 - Alcohol abuse, uncomplicated Status: Acute Assessment and Plan: Stable (4) Hypertension: Code(s): I10 - Essential (primary) hypertension Status: Acute Assessment and Plan: controlled on no medications (5) Hyperlipidemia: Code(s): E78.5 - Hyperlipidemia, unspecified Status: Acute Assessment and Plan: Stable (6) Hypoalbuminemia: Code(s): E88.09 - Other disorders of plasma-protein metabolism, not elsewhere classified Status: Acute Assessment and Plan: Stable Plan 03/22/2022: Called and spoke with daughter and son, below: Kim [phone] Jm [phone] Patient has been estranged from his family for years, was in a long-term relationship with a girlfriend who recently dumped him. Currently has no one significant in his life who can make decisions for him and children are not interested in being guardians at this time. Therefore, patient will need to be deemed legally incompetent, possibly by Psychiatry and the legal guardian will need to be placed who can be patient's power of pig casting machine operator. At that time, patient will need to establish residence in [place], confirm Medicare enrollment, and be placed in a memory care facility. I anticipate that an ethics committee will need to be initiated to start the process for this patient's guardianship and ultimately get him a safe discharge. See care coordination note for further details. Patient is medically safe for discharge since March 27, 2022. DVT prophylaxis with SCDs GI prophylaxis not indicated Code status full code Subjective Date/time seen: 03/27/22 13:25 Interval history: No overnight events noted. No chest pain or shortness of breath. No nausea, vomiting or diarrhea. No fevers or chills. Review of Systems Review of Systems: 12 point review of systems was assessed and was negative except as noted in the HPI Exam Narrative: General: No acute distress, alert and oriented per baseline HEENT: Atraumatic, normocephalic, mucous membranes moist CV: Regular rate and rhythm, S1, S2 Lungs: Clear to auscultation bilaterally, no rales or crackles noted, no wheezes, good air entry Abdomen: Soft, nontender, nondistended Extremities: Normal to inspection Skin: No rashes noted, no lesions or wounds seen Psych: Euthymic, normal affect Objective Data Vital Signs Vital Signs: Vital Signs - 24 hr 03/27/22 15:00 03/27/22 21:48 03/27/22 20:00 Temperature 98.3 F 97.9 F Pulse Rate 77 83 Respiratory Rate 14 16 Blood Pressure 119/65 139/71 Pulse Oximetry 93 96 Oxygen Delivery Room Air 03/28/22 05:26 Temperature 98.4 F Pulse Rate 88 Respiratory Rate 24 H Blood Pressure 132/75 Pulse Oximetry 93 Oxygen Delivery Intake/Output Intake/Output: Intake & Output 03/25/22 03/26/22 03/27/22 03/28/22 23:59 23:59 23:59 23:59 Intake Total 1780 1040 1260 50 Output Total 1250 200 Balance 530 1040 1060 50 Meds/Results Medications: Active Medications Generic Name Dose Route Start Last Admin Trade Name Freq PRN Reason Stop Dose Admin Acetaminophen 650 mg 03/21/22 14:05 03/27/22 09:07 Acetaminophen 325 Mg Tablet PO 650 mg Q4H PRN Administration Mild Pain (1-3) or Fever Radiology Results: ITS Impressions Head CT 03/21/22 12:20 IMPRESSION: 1. No acute intracranial abnormality. 2. Age related findings. Chest X-Ray 03/21/22 12:28 IMPRESSION: 1. No
[2022-03-28 14:00] VITALS: BP 129/74; PULSE 86; RESP 16; TEMP 37.3; O2SAT 92
[2022-03-28 22:00] VITALS: BP 129/74; PULSE 82; RESP 17; TEMP 37.1; O2SAT 94
[2022-03-29 06:00] VITALS: BP 136/76; PULSE 83; RESP 18; TEMP 37.3; O2SAT 94
[2022-03-29 06:37] LABS: Basophils Percent Auto 0.4 % (0.2-1.2); Eosinophils Absolute Auto 0.1 K/mm3 (0-0.3); Eosinophils Percent Auto 1.3 % (0-4.4); Hematocrit 38.5 % (42.0-52.0); Hemoglobin 12.6 g/dL (14.0-18.0); Immature Granulocyte Absolute 0.03 K/mm3 (0.00-0.031); Immature Granulocyte Percent A 0.4 % (0-0.5); Lymphocytes Absolute Auto 1.15 K/mm3 (0.9-3.2); Lymphocytes Percent Auto 15.4 % (18.3-44.2); Mean Corpuscular HGB Conc 32.7 g/dl (32-36); Mean Corpuscular Hemoglobin 31.4 pg (26-34); Mean Platelet Volume 10.7 fl (7.4-10.4); Monocytes Percent Auto 13.3 % (2.6-8.5); Neutrophils Absolute Auto 5.2 K/mm3 (1.3-6.7); Neutrophils Percent Auto 69.2 % (45.5-73.1); Platelet Count Result 190 k/mm3 (150-375); Red Blood Count 4.01 M/mm3 (4.6-6.20); Red Cell Distribution Width 13.5 % (11.5-14.5); White Blood Count 7.5 K/mm3 (4.5-10.0)
[2022-03-29 07:03] LABS: Alanine Aminotransferase 17 U/L (6-50); Albumin Level 3.1 g/dL (3.5-5.1); Alkaline Phosphatase 73 U/L (38-126); Anion Gap 7 mmol/L (8-16); Aspartate Amino Transferase 27 U/L (17-59); Bilirubin,Total 0.6 mg/dL (0.2-1.3); Blood Urea Nitrogen 12 mg/dL (9-20); Calcium 8.6 mg/dL (8.4-10.2); Carbon Dioxide 26 mmol/L (22-30); Chloride 103 mmol/L (98-107); Estimated CRCL calculation 64 ml/min; Estimated Glomerular Filt Rate > 60; Glucose 90 mg/dL (65-110); Sodium 136 mmol/L (137-145)
[2022-03-29 13:37] VITALS: BP 117/72; PULSE 89; RESP 18; TEMP 37.1; O2SAT 93
--- NOTE | 2022-03-29 15:58 | PM.IMPN ---
Progress Note: A&P Assessment and Plan (1) Dementia: Code(s): F03.90 - Unspecified dementia, unspecified severity, without behavioral disturbance, psychotic disturbance, mood disturbance, and anxiety Status: Acute Assessment and Plan: Patient is at baseline mentation, likely related to his underlying dementia. Neurology has been consulted. Brain reviewed. (2) Hypokalemia: Code(s): E87.6 - Hypokalemia Status: Acute Assessment and Plan: Resolved (3) Alcohol abuse: Code(s): F10.10 - Alcohol abuse, uncomplicated Status: Acute Assessment and Plan: Stable (4) Hypertension: Code(s): I10 - Essential (primary) hypertension Status: Acute Assessment and Plan: controlled on no medications (5) Hyperlipidemia: Code(s): E78.5 - Hyperlipidemia, unspecified Status: Acute Assessment and Plan: Stable (6) Hypoalbuminemia: Code(s): E88.09 - Other disorders of plasma-protein metabolism, not elsewhere classified Status: Acute Assessment and Plan: Stable Plan 03/22/2022: Previous physician Called and spoke with daughter and son, below: Kim [phone] Jm [phone] Patient has been estranged from his family for years, was in a long-term relationship with a girlfriend who recently dumped him. Currently has no one significant in his life who can make decisions for him and children are not interested in being guardians at this time. Therefore, patient will need to be deemed legally incompetent, possibly by Psychiatry and the legal guardian will need to be placed who can be patient's power of mergers and acquisitions attorney. At that time, patient will need to establish residence in [place], confirm Medicare enrollment, and be placed in a memory care facility. I anticipate that an ethics committee will need to be initiated to start the process for this patient's guardianship and ultimately get him a safe discharge. See care coordination note for further details. Patient is medically safe for discharge since March 27, 2022. Await further safe discharge plan for care coordination. DVT prophylaxis with SCDs GI prophylaxis not indicated Code status full code Subjective Date/time seen: 03/29/22 15:58 Interval history: No overnight events noted.Patient in no acute distress lying in bed. when asked about he is doing he mentions his situation with his phone. All is answers are tangential. He does state his son is coming to pick him up. Which looks like somewhat to from care coordination notes. He is however not able to clearly define how and why he is here Or where he is at. Review of Systems Review of Systems: All systems reviewed & are unremarkable except as noted in HPI and below Exam Narrative: General: No acute distress, alert and Conversant slowly responsive HEENT: Atraumatic, normocephalic, mucous membranes moist CV: Regular rate and rhythm, S1, S2 Lungs: Clear to auscultation bilaterally, no rales or crackles noted, no wheezes, good air entry Abdomen: Soft, nontender, nondistended Extremities: Normal to inspection Skin: No rashes noted, no lesions or wounds seen Psych: flat affect Objective Data Vital Signs Vital Signs: Vital Signs - 24 hr 03/28/22 22:00 03/28/22 20:00 03/29/22 06:00 Temperature 98.7 F 99.2 F Pulse Rate 82 83 Respiratory Rate 17 18 Blood Pressure 129/74 136/76 Pulse Oximetry 94 94 Oxygen Delivery Room Air 03/29/22 13:37 Temperature 98.7 F Pulse Rate 89 Respiratory Rate 18 Blood Pressure 117/72 Pulse Oximetry 93 Oxygen Delivery Intake/Output Intake/Output: Intake & Output 03/26/22 03/27/22 03/28/22 03/29/22 23:59 23:59 23:59 23:59 Intake Total 1040 1260 290 140 Output Total 200 200 Balance 1040 1060 290 -60 Meds/Results Medications: Active Medications Generic Name Dose Route Start Last Admin Trade Name Freq PRN Reason Stop Dose Admi
[2022-03-29 22:00] VITALS: BP 123/66; PULSE 85; RESP 19; TEMP 37.1; O2SAT 92
[2022-03-30 06:27] LABS: Basophils Percent Auto 0.4 % (0.2-1.2); Eosinophils Absolute Auto 0.1 K/mm3 (0-0.3); Eosinophils Percent Auto 1.2 % (0-4.4); Hematocrit 37.7 % (42.0-52.0); Hemoglobin 12.3 g/dL (14.0-18.0); Immature Granulocyte Absolute 0.04 K/mm3 (0.00-0.031); Immature Granulocyte Percent A 0.5 % (0-0.5); Lymphocytes Absolute Auto 1.14 K/mm3 (0.9-3.2); Lymphocytes Percent Auto 14.9 % (18.3-44.2); Mean Corpuscular HGB Conc 32.6 g/dl (32-36); Mean Corpuscular Hemoglobin 30.4 pg (26-34); Mean Corpuscular Volume 93.1 fl (80-100); Mean Platelet Volume 10.4 fl (7.4-10.4); Monocytes Percent Auto 12.5 % (2.6-8.5); Neutrophils Absolute Auto 5.4 K/mm3 (1.3-6.7); Neutrophils Percent Auto 70.5 % (45.5-73.1); Platelet Count Result 209 k/mm3 (150-375); Red Blood Count 4.05 M/mm3 (4.6-6.20); Red Cell Distribution Width 13.2 % (11.5-14.5); White Blood Count 7.7 K/mm3 (4.5-10.0)
[2022-03-30 06:57] LABS: Alanine Aminotransferase 17 U/L (6-50); Albumin Level 3.2 g/dL (3.5-5.1); Alkaline Phosphatase 74 U/L (38-126); Anion Gap 8 mmol/L (8-16); Aspartate Amino Transferase 26 U/L (17-59); Bilirubin,Total 0.6 mg/dL (0.2-1.3); Blood Urea Nitrogen 14 mg/dL (9-20); Calcium 8.5 mg/dL (8.4-10.2); Carbon Dioxide 24 mmol/L (22-30); Chloride 103 mmol/L (98-107); Estimated CRCL calculation 64 ml/min; Estimated Glomerular Filt Rate > 60; Glucose 88 mg/dL (65-110); Potassium 3.7 mmol/L (3.4-5.0); Sodium 135 mmol/L (137-145)
[2022-03-30 13:15] VITALS: BP 122/71; PULSE 89; RESP 19; TEMP 37.1; O2SAT 92
--- NOTE | 2022-03-30 15:11 | PM.IMPN ---
Progress Note: A&P Assessment and Plan (1) Dementia: Code(s): F03.90 - Unspecified dementia, unspecified severity, without behavioral disturbance, psychotic disturbance, mood disturbance, and anxiety Status: Acute Assessment and Plan: Patient is at baseline mentation, likely related to his underlying dementia. Neurology has been consulted. Brain MRI reviewed. (2) Hypokalemia: Code(s): E87.6 - Hypokalemia Status: Acute Assessment and Plan: Resolved (3) Alcohol abuse: Code(s): F10.10 - Alcohol abuse, uncomplicated Status: Acute Assessment and Plan: Stable (4) Hypertension: Code(s): I10 - Essential (primary) hypertension Status: Acute Assessment and Plan: controlled on no medications (5) Hyperlipidemia: Code(s): E78.5 - Hyperlipidemia, unspecified Status: Acute Assessment and Plan: Stable (6) Hypoalbuminemia: Code(s): E88.09 - Other disorders of plasma-protein metabolism, not elsewhere classified Status: Acute Assessment and Plan: Stable Plan 03/22/2022: Previous physician Called and spoke with daughter and son, below: Kim [phone] Jm [phone] Patient has been estranged from his family for years, was in a long-term relationship with a girlfriend who recently dumped him. Currently has no one significant in his life who can make decisions for him and children are not interested in being guardians at this time. Therefore, patient will need to be deemed legally incompetent, possibly by Psychiatry and the legal guardian will need to be placed who can be patient's power of immigration attorney. At that time, patient will need to establish residence in [place], confirm Medicare enrollment, and be placed in a memory care facility. I anticipate that an ethics committee will need to be initiated to start the process for this patient's guardianship and ultimately get him a safe discharge. See care coordination note for further details. Patient is medically safe for discharge since March 27, 2022. Await further safe discharge plan for care coordination. DVT prophylaxis with SCDs GI prophylaxis not indicated Code status full code Subjective Date/time seen: 03/30/22 15:11 Interval history: No new complaints. Wants to go to [facility] because he States that the have not really 60s device yet. he is unclear how he is going to get to [address] are tells me where he is currently located at. Review of Systems Review of Systems: All systems reviewed & are unremarkable except as noted in HPI and below Exam Narrative: General: No acute distress, alert and Conversant slowly responsive HEENT: Atraumatic, normocephalic, mucous membranes moist CV: Regular rate and rhythm, S1, S2 Lungs: Clear to auscultation bilaterally, no rales or crackles noted, no wheezes, good air entry Abdomen: Soft, nontender, nondistended Extremities: Normal to inspection Skin: No rashes noted, no lesions or wounds seen Psych: flat affect Objective Data Vital Signs Vital Signs: Vital Signs - 24 hr 03/29/22 20:00 03/29/22 22:00 03/30/22 13:15 Temperature 98.8 F 98.7 F Pulse Rate 85 89 Respiratory Rate 19 19 Blood Pressure 123/66 122/71 Pulse Oximetry 92 92 Oxygen Delivery Room Air Intake/Output Intake/Output: Intake & Output 03/27/22 03/28/22 03/29/22 03/30/22 23:59 23:59 23:59 23:59 Intake Total 1260 290 320 120 Output Total 200 200 Balance 1060 290 120 120 Meds/Results Medications: Active Medications Generic Name Dose Route Start Last Admin Trade Name Freq PRN Reason Stop Dose Admin Acetaminophen 650 mg 03/21/22 14:05 03/27/22 09:07 Acetaminophen 325 Mg Tablet PO 650 mg Q4H PRN Administration Mild Pain (1-3) or Fever Radiology Results: ITS Impressions Head CT 03/21/22 12:20 IMPRESSION: 1. No acute intracranial abnormality. 2. Age related f
[2022-03-30 19:52] VITALS: BP 121/60; PULSE 74; RESP 18; TEMP 36.3; O2SAT 90
[2022-03-31 04:19] VITALS: BP 116/51; PULSE 78; RESP 18; TEMP 36.4; O2SAT 91
[2022-03-31 06:18] LABS: Basophils Percent Auto 0.6 % (0.2-1.2); Eosinophils Absolute Auto 0.2 K/mm3 (0-0.3); Eosinophils Percent Auto 4.2 % (0-4.4); Hematocrit 38.4 % (42.0-52.0); Hemoglobin 12.4 g/dL (14.0-18.0); Immature Granulocyte Absolute 0.03 K/mm3 (0.00-0.031); Immature Granulocyte Percent A 0.6 % (0-0.5); Lymphocytes Absolute Auto 1.23 K/mm3 (0.9-3.2); Lymphocytes Percent Auto 22.6 % (18.3-44.2); Mean Corpuscular HGB Conc 32.3 g/dl (32-36); Mean Corpuscular Hemoglobin 30.2 pg (26-34); Mean Corpuscular Volume 93.7 fl (80-100); Mean Platelet Volume 10.5 fl (7.4-10.4); Monocytes Absolute Auto 0.8 K/mm3 (0.1-0.6); Monocytes Percent Auto 14.7 % (2.6-8.5); Neutrophils Absolute Auto 3.1 K/mm3 (1.3-6.7); Neutrophils Percent Auto 57.3 % (45.5-73.1); Platelet Count Result 211 k/mm3 (150-375); Red Cell Distribution Width 13.2 % (11.5-14.5); White Blood Count 5.5 K/mm3 (4.5-10.0)
[2022-03-31 06:30] LABS: Alanine Aminotransferase 15 U/L (6-50); Albumin Level 3.1 g/dL (3.5-5.1); Alkaline Phosphatase 68 U/L (38-126); Anion Gap 13 mmol/L (8-16); Aspartate Amino Transferase 25 U/L (17-59); Bilirubin,Total 0.6 mg/dL (0.2-1.3); Blood Urea Nitrogen 15 mg/dL (9-20); Calcium 8.3 mg/dL (8.4-10.2); Carbon Dioxide 24 mmol/L (22-30); Chloride 102 mmol/L (98-107); Estimated CRCL calculation 64 ml/min; Estimated Glomerular Filt Rate > 60; Glucose 83 mg/dL (65-110); Potassium 3.4 mmol/L (3.4-5.0); Sodium 139 mmol/L (137-145)
[2022-03-31 14:00] VITALS: BP 106/64; PULSE 95; RESP 18; TEMP 37.4; O2SAT 95
--- NOTE | 2022-03-31 14:28 | PM.IMPN ---
Progress Note: A&P Assessment and Plan (1) Dementia: Code(s): F03.90 - Unspecified dementia, unspecified severity, without behavioral disturbance, psychotic disturbance, mood disturbance, and anxiety Status: Acute Assessment and Plan: Patient is at baseline mentation, likely related to his underlying dementia. Neurology has been consulted. Brain MRI reviewed. (2) Hypokalemia: Code(s): E87.6 - Hypokalemia Status: Acute Assessment and Plan: Resolved (3) Alcohol abuse: Code(s): F10.10 - Alcohol abuse, uncomplicated Status: Acute Assessment and Plan: Stable (4) Hypertension: Code(s): I10 - Essential (primary) hypertension Status: Acute Assessment and Plan: controlled on no medications (5) Hyperlipidemia: Code(s): E78.5 - Hyperlipidemia, unspecified Status: Acute Assessment and Plan: Stable (6) Hypoalbuminemia: Code(s): E88.09 - Other disorders of plasma-protein metabolism, not elsewhere classified Status: Acute Assessment and Plan: Stable Plan 03/22/2022: Previous physician Called and spoke with daughter and son, below: Kim [phone] Jm [phone] Patient has been estranged from his family for years, was in a long-term relationship with a girlfriend who recently dumped him. Currently has no one significant in his life who can make decisions for him and children are not interested in being guardians at this time. Therefore, patient will need to be deemed legally incompetent, possibly by Psychiatry and the legal guardian will need to be placed who can be patient's power of operations support professionals. At that time, patient will need to establish residence in [place], confirm Medicare enrollment, and be placed in a memory care facility. I anticipate that an ethics committee will need to be initiated to start the process for this patient's guardianship and ultimately get him a safe discharge. See care coordination note for further details. Patient is medically safe for discharge since March 27, 2022. Await further safe discharge plan for care coordination. DVT prophylaxis with SCDs GI prophylaxis not indicated Code status full code Subjective Date/time seen: 03/31/22 14:28 Interval history: no overnight events. States nobody has fixed his phone problem. Denies any chest pain or shortness of breath. Eating his meal this morning No new complaints. Wants to go to [employer] store because he States that the have not really 60s device yet. he is unclear how he is going to get to [address] store are tells me where he is currently located at. Review of Systems Review of Systems: All systems reviewed & are unremarkable except as noted in HPI and below Exam Narrative: General: No acute distress, alert and Conversant slowly responsive HEENT: Atraumatic, normocephalic, mucous membranes moist CV: Regular rate and rhythm, S1, S2 Lungs: Clear to auscultation bilaterally, no rales or crackles noted, no wheezes, good air entry Abdomen: Soft, nontender, nondistended Extremities: Normal to inspection Skin: No rashes noted, no lesions or wounds seen Psych: flat affect Objective Data Vital Signs Vital Signs: Vital Signs - 24 hr 03/30/22 19:52 03/30/22 20:25 03/31/22 04:19 Temperature 97.3 F L 97.6 F Pulse Rate 74 78 Respiratory Rate 18 18 Blood Pressure 121/60 116/51 L Pulse Oximetry 90 91 Oxygen Delivery Room Air 03/31/22 09:55 Temperature Pulse Rate Respiratory Rate Blood Pressure Pulse Oximetry Oxygen Delivery Room Air Intake/Output Intake/Output: Intake & Output 03/28/22 03/29/22 03/30/22 03/31/22 23:59 23:59 23:59 23:59 Intake Total 290 320 560 480 Output Total 200 100 200 Balance 290 120 460 280 Meds/Results Medications: Active Medications Generic Name Dose Route Start Last Admin Trade Name Freq PRN Reason Stop Dose Admin Acetaminophen 650
[2022-03-31 20:00] VITALS: PULSE 73; RESP 18; O2SAT 90
[2022-03-31 21:27] VITALS: BP 119/61; PULSE 73; RESP 18; TEMP 36.5; O2SAT 90
[2022-03-31] MEDS: DOCUSATE SODIUM 100 MG CAPSULE PO (22:13)
[2022-04-01 06:00] VITALS: BP 118/65; PULSE 66; RESP 12; TEMP 37.1; O2SAT 90
[2022-04-01 14:00] VITALS: BP 115/70; PULSE 67; RESP 16; TEMP 36.9; O2SAT 95
--- NOTE | 2022-04-01 15:40 | PM.IMPN ---
Progress Note: A&P Assessment and Plan (1) Dementia: Code(s): F03.90 - Unspecified dementia, unspecified severity, without behavioral disturbance, psychotic disturbance, mood disturbance, and anxiety Status: Acute Assessment and Plan: Patient is at baseline mentation, likely related to his underlying dementia. Neurology has been consulted. Brain MRI reviewed. (2) Hypokalemia: Code(s): E87.6 - Hypokalemia Status: Acute Assessment and Plan: Resolved (3) Alcohol abuse: Code(s): F10.10 - Alcohol abuse, uncomplicated Status: Acute Assessment and Plan: Stable (4) Hypertension: Code(s): I10 - Essential (primary) hypertension Status: Acute Assessment and Plan: controlled on no medications (5) Hyperlipidemia: Code(s): E78.5 - Hyperlipidemia, unspecified Status: Acute Assessment and Plan: Stable (6) Hypoalbuminemia: Code(s): E88.09 - Other disorders of plasma-protein metabolism, not elsewhere classified Status: Acute Assessment and Plan: Stable Plan 03/22/2022: Previous physician Called and spoke with daughter and son, below: Kim [phone] Jm [phone] Patient has been estranged from his family for years, was in a long-term relationship with a girlfriend who recently dumped him. Currently has no one significant in his life who can make decisions for him and children are not interested in being guardians at this time. Therefore, patient will need to be deemed legally incompetent, possibly by Psychiatry and the legal guardian will need to be placed who can be patient's power of workers compensation attorney. At that time, patient will need to establish residence in [place], confirm Medicare enrollment, and be placed in a memory care facility. I anticipate that an ethics committee will need to be initiated to start the process for this patient's guardianship and ultimately get him a safe discharge. See care coordination note for further details. Patient is medically safe for discharge since March 27, 2022. Await further safe discharge plan for care coordination. Plan to transferred to assisted living facility in [place] DVT prophylaxis with SCDs GI prophylaxis not indicated Code status full code Subjective Date/time seen: 04/01/22 15:40 Interval history: No new complaints. He is frustrated as nobody could go to the [facility] [employer] store to get his phone fixed. He otherwise denies any chest pain shortness a breath abdominal pain or nausea vomiting. Review of Systems Review of Systems: All systems reviewed & are unremarkable except as noted in HPI and below Exam Narrative: General: No acute distress, alert and Conversant slowly responsive HEENT: Atraumatic, normocephalic, mucous membranes moist CV: Regular rate and rhythm, S1, S2 Lungs: Clear to auscultation bilaterally, no rales or crackles noted, no wheezes, good air entry Abdomen: Soft, nontender, nondistended Extremities: Normal to inspection Skin: No rashes noted, no lesions or wounds seen Psych: flat affect Objective Data Vital Signs Vital Signs: Vital Signs - 24 hr 03/31/22 21:27 03/31/22 20:00 04/01/22 06:00 Temperature 97.7 F 98.8 F Pulse Rate 73 73 66 Respiratory Rate 18 18 12 Blood Pressure 119/61 118/65 Pulse Oximetry 90 90 90 Oxygen Delivery Room Air 04/01/22 08:00 Temperature Pulse Rate Respiratory Rate Blood Pressure Pulse Oximetry Oxygen Delivery Room Air Intake/Output Intake/Output: Intake & Output 03/29/22 03/30/22 03/31/22 04/01/22 23:59 23:59 23:59 23:59 Intake Total 267 003 3936 470 Output Total 200 100 700 225 Balance 120 460 320 245 Meds/Results Medications: Active Medications Generic Name Dose Route Start Last Admin Trade Name Freq PRN Reason Stop Dose Admin Acetaminophen 650 mg 03/21/22 14:05 03/27/22 09:07 Acetaminophen 325 Mg Tablet PO 650 mg Q4H [place]
[2022-04-01 20:30] VITALS: PULSE 69; RESP 14; O2SAT 95
[2022-04-01] MEDS: DOCUSATE SODIUM 100 MG CAPSULE PO (20:36)
[2022-04-01 22:00] VITALS: BP 117/70; PULSE 69; RESP 14; TEMP 36.4; O2SAT 95
[2022-04-02 05:52] VITALS: BP 117/75; PULSE 72; RESP 14; TEMP 36.9; O2SAT 96
--- NOTE | 2022-04-02 15:08 | PM.IMPN ---
Progress Note: A&P Assessment and Plan (1) Dementia: Code(s): F03.90 - Unspecified dementia, unspecified severity, without behavioral disturbance, psychotic disturbance, mood disturbance, and anxiety Status: Acute Assessment and Plan: Patient is at baseline mentation, likely related to his underlying dementia. Neurology has been consulted. Brain MRI reviewed. (2) Hypokalemia: Code(s): E87.6 - Hypokalemia Status: Acute Assessment and Plan: Resolved (3) Alcohol abuse: Code(s): F10.10 - Alcohol abuse, uncomplicated Status: Acute Assessment and Plan: Stable (4) Hypertension: Code(s): I10 - Essential (primary) hypertension Status: Acute Assessment and Plan: controlled on no medications (5) Hyperlipidemia: Code(s): E78.5 - Hyperlipidemia, unspecified Status: Acute Assessment and Plan: Stable (6) Hypoalbuminemia: Code(s): E88.09 - Other disorders of plasma-protein metabolism, not elsewhere classified Status: Acute Assessment and Plan: Stable Plan 03/22/2022: Previous physician Called and spoke with daughter and son, below: Kim [phone] Jm [phone] Patient has been estranged from his family for years, was in a long-term relationship with a girlfriend who recently dumped him. Currently has no one significant in his life who can make decisions for him and children are not interested in being guardians at this time. Therefore, patient will need to be deemed legally incompetent, possibly by Psychiatry and the legal guardian will need to be placed who can be patient's power of law firm administrator. At that time, patient will need to establish residence in [place], confirm Medicare enrollment, and be placed in a memory care facility. I anticipate that an ethics committee will need to be initiated to start the process for this patient's guardianship and ultimately get him a safe discharge. See care coordination note for further details. Patient is medically safe for discharge since March 27, 2022. Await further safe discharge plan for care coordination. Plan to transferred to assisted living facility in [place] DVT prophylaxis with SCDs GI prophylaxis not indicated Code status full code Subjective Date/time seen: 04/02/22 15:08 Interval history: No new complaints. no fever, chills, sob, chest pain, no abdominal pain, nausea, vomiting. he wants to get shaved. Review of Systems Review of Systems: All systems reviewed & are unremarkable except as noted in HPI and below Exam Narrative: General: No acute distress, alert and Conversant slowly responsive HEENT: Atraumatic, normocephalic, mucous membranes moist CV: Regular rate and rhythm, S1, S2 Lungs: Clear to auscultation bilaterally, no rales or crackles noted, no wheezes, good air entry Abdomen: Soft, nontender, nondistended Extremities: Normal to inspection Skin: No rashes noted, no lesions or wounds seen Psych: flat affect Objective Data Vital Signs Vital Signs: Vital Signs - 24 hr 04/01/22 22:00 04/01/22 20:30 04/02/22 05:52 Temperature 97.6 F 98.4 F Pulse Rate 69 69 72 Respiratory Rate 14 14 14 Blood Pressure 117/70 117/75 Pulse Oximetry 95 95 96 Oxygen Delivery Room Air 04/02/22 08:00 Temperature Pulse Rate Respiratory Rate Blood Pressure Pulse Oximetry Oxygen Delivery Room Air Intake/Output Intake/Output: Intake & Output 03/30/22 03/31/22 04/01/22 04/02/22 23:59 23:59 23:59 23:59 Intake Total 560 1020 1210 0 Output Total 100 700 225 0 Balance 460 320 985 0 Meds/Results Medications: Active Medications Generic Name Dose Route Start Last Admin Trade Name Freq PRN Reason Stop Dose Admin Acetaminophen 650 mg 03/21/22 14:05 03/27/22 09:07 Acetaminophen 325 Mg Tablet PO 650 mg Q4H PRN Administration Mild Pain (1-3) or Fever Docusate Sodium 100 mg 03/31/22
[2022-04-02 15:57] VITALS: BP 109/70; PULSE 68; RESP 14; TEMP 36.5; O2SAT 96
[2022-04-02 22:00] VITALS: BP 125/66; PULSE 64; RESP 18; TEMP 35.8; O2SAT 95
[2022-04-03 06:00] VITALS: BP 121/77; PULSE 70; RESP 18; TEMP 35.8; O2SAT 96
--- NOTE | 2022-04-03 13:22 | PCNFU ---
Nutrition Follow-Up Complete: Goal: Current average meal intake 35%, Increase PO intake to 50-75% of meals and complete intake of nutritional supplements Pt current nutrition is reg. Nutrition recommendation: Magic cup BID, provides 290kcal and 9g protein Last recorded weight is 73.5 kg. Bowel Motility: last BM 04/01/2022 Labs Reviewed: 03/31: Hgb: 12.4, Hct: 38.4, Alb: 3.1 Meds Noted:miralax, colace Skin: no pressure wounds. Right medial arm skin tear, sacrum reddened, back bruise Additional Notes: Pt has a history of dementia. He states that his appetite has been average (not too little, not too much). Per diet assessment pt's meal PO intake is 35%. States his usual body wt is 161lbs and says he has not noticed any changes/loss of wt. follow up 5 days monitor appetite, meal and nutritional intake and tolerance, wt and labs.
--- NOTE | 2022-04-03 13:33 | PCNSR ---
On 04/03/22, the student, Kel Strauss, provided care and completed [facility] documentation on this patient. I have reviewed the student's documentation and agree with the findings.
[2022-04-03 14:00] VITALS: BP 123/75; PULSE 69; RESP 18; TEMP 35.9; O2SAT 97
--- NOTE | 2022-04-03 14:59 | PM.IMPN ---
Progress Note: A&P Assessment and Plan (1) Dementia: Code(s): F03.90 - Unspecified dementia, unspecified severity, without behavioral disturbance, psychotic disturbance, mood disturbance, and anxiety Status: Acute Assessment and Plan: Patient is at baseline mentation, likely related to his underlying dementia. Neurology has been consulted. Brain MRI reviewed. (2) Hypokalemia: Code(s): E87.6 - Hypokalemia Status: Acute Assessment and Plan: Resolved (3) Alcohol abuse: Code(s): F10.10 - Alcohol abuse, uncomplicated Status: Acute Assessment and Plan: Stable (4) Hypertension: Code(s): I10 - Essential (primary) hypertension Status: Acute Assessment and Plan: controlled on no medications (5) Hyperlipidemia: Code(s): E78.5 - Hyperlipidemia, unspecified Status: Acute Assessment and Plan: Stable (6) Hypoalbuminemia: Code(s): E88.09 - Other disorders of plasma-protein metabolism, not elsewhere classified Status: Acute Assessment and Plan: Stable Plan 03/22/2022: Previous physician Called and spoke with daughter and son, below: Kim [phone] Jm [phone] Patient has been estranged from his family for years, was in a long-term relationship with a girlfriend who recently dumped him. Currently has no one significant in his life who can make decisions for him and children are not interested in being guardians at this time. Therefore, patient will need to be deemed legally incompetent, possibly by Psychiatry and the legal guardian will need to be placed who can be patient's power of county attorney. At that time, patient will need to establish residence in [place], confirm Medicare enrollment, and be placed in a memory care facility. I anticipate that an ethics committee will need to be initiated to start the process for this patient's guardianship and ultimately get him a safe discharge. See care coordination note for further details. Patient is medically safe for discharge since March 27, 2022. Await further safe discharge plan for care coordination. Plan to transferred to assisted living facility in [place] DVT prophylaxis with SCDs GI prophylaxis not indicated Code status full code Subjective Date/time seen: 04/03/22 14:59 Interval history: No new complaints. dneies any issues. no overnight events. Review of Systems Review of Systems: All systems reviewed & are unremarkable except as noted in HPI and below Exam Narrative: General: No acute distress, alert and Conversant slowly responsive HEENT: Atraumatic, normocephalic, mucous membranes moist CV: Regular rate and rhythm, S1, S2 Lungs: Clear to auscultation bilaterally, no rales or crackles noted, no wheezes, good air entry Abdomen: Soft, nontender, nondistended Extremities: Normal to inspection Skin: No rashes noted, no lesions or wounds seen Psych: flat affect Objective Data Vital Signs Vital Signs: Vital Signs - 24 hr 04/02/22 15:57 04/02/22 22:00 04/03/22 06:00 Temperature 97.7 F 96.5 F L 96.5 F L Pulse Rate 68 64 70 Respiratory Rate 14 18 18 Blood Pressure 109/70 125/66 121/77 Pulse Oximetry 96 95 96 04/03/22 14:00 Temperature 96.6 F L Pulse Rate 69 Respiratory Rate 18 Blood Pressure 123/75 Pulse Oximetry 97 Intake/Output Intake/Output: Intake & Output 03/31/22 04/01/22 04/02/22 04/03/22 23:59 23:59 23:59 23:59 Intake Total 1020 1210 0 630 Output Total 700 225 200 100 Balance 320 985 -200 530 Meds/Results Medications: Active Medications Generic Name Dose Route Start Last Admin Trade Name Freq PRN Reason Stop Dose Admin Acetaminophen 650 mg 03/21/22 14:05 03/27/22 09:07 Acetaminophen 325 Mg Tablet PO 650 mg Q4H PRN Administration Mild Pain (1-3) or Fever Docusate Sodium 100 mg 03/31/22 21:00 04/02/22 20:08 Docusate Sodium 100 Mg Capsule PO Not Give
[2022-04-03 21:44] VITALS: BP 100/72; PULSE 63; RESP 20; TEMP 36.3; O2SAT 94
[2022-04-04 05:34] VITALS: BP 127/82; PULSE 70; RESP 20; TEMP 36.5; O2SAT 94
[2022-04-04 13:33] VITALS: BP 99/70; PULSE 77; RESP 20; TEMP 35.8; O2SAT 96
--- NOTE | 2022-04-04 16:10 | PM.IMPN ---
Progress Note: A&P Assessment and Plan (1) Dementia: Code(s): F03.90 - Unspecified dementia, unspecified severity, without behavioral disturbance, psychotic disturbance, mood disturbance, and anxiety Status: Acute Assessment and Plan: Patient is at baseline mentation, likely related to his underlying dementia. Neurology has been consulted. Brain MRI reviewed. (2) Hypokalemia: Code(s): E87.6 - Hypokalemia Status: Acute Assessment and Plan: Resolved (3) Alcohol abuse: Code(s): F10.10 - Alcohol abuse, uncomplicated Status: Acute Assessment and Plan: Stable (4) Hypertension: Code(s): I10 - Essential (primary) hypertension Status: Acute Assessment and Plan: controlled on no medications (5) Hyperlipidemia: Code(s): E78.5 - Hyperlipidemia, unspecified Status: Acute Assessment and Plan: Stable (6) Hypoalbuminemia: Code(s): E88.09 - Other disorders of plasma-protein metabolism, not elsewhere classified Status: Acute Assessment and Plan: Stable Plan 03/22/2022: Previous physician Called and spoke with daughter and son, below: Kim [phone] Jm [phone] Patient has been estranged from his family for years, was in a long-term relationship with a girlfriend who recently dumped him. Currently has no one significant in his life who can make decisions for him and children are not interested in being guardians at this time. Therefore, patient will need to be deemed legally incompetent, possibly by Psychiatry and the legal guardian will need to be placed who can be patient's power of asset analyst. At that time, patient will need to establish residence in [place], confirm Medicare enrollment, and be placed in a memory care facility. I anticipate that an ethics committee will need to be initiated to start the process for this patient's guardianship and ultimately get him a safe discharge. See care coordination note for further details. Patient is medically safe for discharge since March 27, 2022. Await further safe discharge plan for care coordination. Plan to transferred to assisted living facility in [place] However now the have refused. Continue care coordination help for a safe discharge plan for him DVT prophylaxis with SCDs GI prophylaxis not indicated Code status full code Subjective Date/time seen: 04/04/22 16:10 Interval history: No new complaints. he has not been up and about. He reports has no issues. Denies any chest pain or shortness of breath. Review of Systems Review of Systems: All systems reviewed & are unremarkable except as noted in HPI and below Exam Narrative: General: No acute distress, alert and Conversant slowly responsive HEENT: Atraumatic, normocephalic, mucous membranes moist CV: Regular rate and rhythm, S1, S2 Lungs: Clear to auscultation bilaterally, no rales or crackles noted, no wheezes, good air entry Abdomen: Soft, nontender, nondistended Extremities: Normal to inspection Skin: No rashes noted, no lesions or wounds seen Psych: flat affect Objective Data Vital Signs Vital Signs: Vital Signs - 24 hr 04/03/22 21:44 04/04/22 05:34 04/04/22 13:33 Temperature 97.3 F L 97.7 F 96.5 F L Pulse Rate 63 70 77 Respiratory Rate 20 20 20 Blood Pressure 100/72 127/82 99/70 L Pulse Oximetry 94 94 96 Oxygen Delivery 04/04/22 14:35 Temperature Pulse Rate Respiratory Rate Blood Pressure Pulse Oximetry Oxygen Delivery Room Air Intake/Output Intake/Output: Intake & Output 04/01/22 04/02/22 04/03/22 04/04/22 23:59 23:59 23:59 23:59 Intake Total 1210 0 1070 160 Output Total 225 200 600 300 Balance 985 -200 470 -140 Meds/Results Medications: Active Medications Generic Name Dose Route Start Last Admin Trade Name Freq PRN Reason Stop Dose Admin Acetaminophen 650 mg 03/21/22 14:05 03/27/22 09:07 Acetaminophen
[2022-04-04 20:02] VITALS: BP 130/72; PULSE 74; RESP 18; TEMP 37; O2SAT 95
[2022-04-05 04:10] VITALS: BP 107/71; PULSE 69; RESP 18; TEMP 36.4; O2SAT 94
--- NOTE | 2022-04-05 07:44 | PM.IMPN ---
Progress Note: A&P Assessment and Plan (1) Dementia: Code(s): F03.90 - Unspecified dementia, unspecified severity, without behavioral disturbance, psychotic disturbance, mood disturbance, and anxiety Status: Acute Assessment and Plan: Patient is at baseline mentation, stable for discharge since 03/27/2022, not able to make decisions for himself based on info we have gathered on hand, will need HCPOA, currently being assessed by care coord (2) Hypokalemia: Code(s): E87.6 - Hypokalemia Status: Acute Assessment and Plan: Resolved (3) Alcohol abuse: Code(s): F10.10 - Alcohol abuse, uncomplicated Status: Acute Assessment and Plan: Stable (4) Hypertension: Code(s): I10 - Essential (primary) hypertension Status: Acute Assessment and Plan: controlled on no medications (5) Hyperlipidemia: Code(s): E78.5 - Hyperlipidemia, unspecified Status: Acute Assessment and Plan: Stable (6) Hypoalbuminemia: Code(s): E88.09 - Other disorders of plasma-protein metabolism, not elsewhere classified Status: Acute Assessment and Plan: Stable Plan 03/22/2022: Called and spoke with daughter and son, below: Kim [phone] Jm [phone] Patient has been estranged from his family for years, was in a long-term relationship with a girlfriend who recently dumped him. Currently has no one significant in his life who can make decisions for him and children are not interested in being guardians at this time. Therefore, patient will need to be deemed legally incompetent, possibly by Psychiatry and the legal guardian will need to be placed who can be patient's power of personal injury attorney. At that time, patient will need to establish residence in [place], confirm Medicare enrollment, and be placed in a memory care facility. I anticipate that an ethics committee will need to be initiated to start the process for this patient's guardianship and ultimately get him a safe discharge. See care coordination note for further details. Patient is medically safe for discharge since March 27, 2022. 04/05/22: Per care coord, patient to travel back to [place] in custody of son, Jm, to assisted living memory care in [place]. Facility is requiring a HCPOA which Jm is attempting to procure. DVT prophylaxis with SCDs GI prophylaxis not indicated Code status full code Subjective Date/time seen: 04/05/22 07:44 Interval history: No overnight events noted. No chest pain or shortness of breath. No nausea, vomiting or diarrhea. No fevers or chills. Review of Systems Review of Systems: 12 point review of systems was assessed and was negative except as noted in the HPI Exam Narrative: General: No acute distress, alert and oriented per baseline HEENT: Atraumatic, normocephalic, mucous membranes moist CV: Regular rate and rhythm, S1, S2 Lungs: Clear to auscultation bilaterally, no rales or crackles noted, no wheezes, good air entry Abdomen: Soft, nontender, nondistended Extremities: Normal to inspection Skin: No rashes noted, no lesions or wounds seen Psych: Euthymic, normal affect Objective Data Vital Signs Vital Signs: Vital Signs - 24 hr 04/04/22 13:33 04/04/22 14:35 04/04/22 20:02 Temperature 96.5 F L 98.6 F Pulse Rate 77 74 Respiratory Rate 20 18 Blood Pressure 99/70 L 130/72 Pulse Oximetry 96 95 Oxygen Delivery Room Air 04/04/22 20:00 04/05/22 04:10 Temperature 97.6 F Pulse Rate 69 Respiratory Rate 18 Blood Pressure 107/71 Pulse Oximetry 94 Oxygen Delivery Room Air Intake/Output Intake/Output: Intake & Output 04/02/22 04/03/22 04/04/22 04/05/22 23:59 23:59 23:59 23:59 Intake Total 0 1070 600 Output Total 200 600 300 150 Balance -200 470 300 -150 Meds/Results Medications: Active Medications Generic Name Dose Route Start Last Admin Trade Name Freq PRN Reason Stop Dose
[2022-04-05 14:25] VITALS: BP 111/73; PULSE 71; RESP 24; TEMP 36.8; O2SAT 95
[2022-04-05 21:40] VITALS: BP 114/72; PULSE 74; RESP 22; TEMP 36.8; O2SAT 96
[2022-04-06 05:56] VITALS: BP 138/85; PULSE 73; RESP 20; TEMP 36.4; O2SAT 95
--- NOTE | 2022-04-06 10:20 | PM.IMPN ---
Progress Note: A&P Assessment and Plan (1) Dementia: Code(s): F03.90 - Unspecified dementia, unspecified severity, without behavioral disturbance, psychotic disturbance, mood disturbance, and anxiety Status: Acute Assessment and Plan: Patient is at baseline mentation, stable for discharge since at least 03/27/2022, not able to make decisions for himself based on info we have gathered on hand, will need HCPOA, currently being assessed by care coord (2) Hypokalemia: Code(s): E87.6 - Hypokalemia Status: Acute Assessment and Plan: Resolved (3) Alcohol abuse: Code(s): F10.10 - Alcohol abuse, uncomplicated Status: Acute Assessment and Plan: Stable (4) Hypertension: Code(s): I10 - Essential (primary) hypertension Status: Acute Assessment and Plan: controlled on no medications (5) Hyperlipidemia: Code(s): E78.5 - Hyperlipidemia, unspecified Status: Acute Assessment and Plan: Stable (6) Hypoalbuminemia: Code(s): E88.09 - Other disorders of plasma-protein metabolism, not elsewhere classified Status: Acute Assessment and Plan: Stable Plan 03/22/2022: Called and spoke with daughter and son, below: Kim [phone] Jm [phone] Patient has been estranged from his family for years, was in a long-term relationship with a girlfriend who recently dumped him. Currently has no one significant in his life who can make decisions for him and children are not interested in being guardians at this time. Therefore, patient will need to be deemed legally incompetent, possibly by Psychiatry and the legal guardian will need to be placed who can be patient's power of insurance attorney. At that time, patient will need to establish residence in [place], confirm Medicare enrollment, and be placed in a memory care facility. I anticipate that an ethics committee will need to be initiated to start the process for this patient's guardianship and ultimately get him a safe discharge. See care coordination note for further details. Patient is medically safe for discharge since March 27, 2022. 04/05/22: Per care coord, patient to travel back to [place] in custody of son, Jm, to assisted living memory care in [place]. Facility is requiring a HCPOA which Jm is attempting to procure. 04/06: Case submitted to ethics committee as staying here on bedrest with a bed alarm for days on end is not in the patient's best interests and family has given us no end date for picking him up, but also withholding permission for us to pursue legal guardianship in [place]. This stay will likely not be reimbursed by insurance. DVT prophylaxis with SCDs GI prophylaxis not indicated Code status full code Subjective Date/time seen: 04/06/22 10:20 Interval history: No overnight events noted. No chest pain or shortness of breath. No nausea, vomiting or diarrhea. No fevers or chills. Review of Systems Review of Systems: 12 point review of systems was assessed and was negative except as noted in the HPI Exam Narrative: General: No acute distress, alert and oriented per baseline HEENT: Atraumatic, normocephalic, mucous membranes moist CV: Regular rate and rhythm, S1, S2 Lungs: Clear to auscultation bilaterally, no rales or crackles noted, no wheezes, good air entry Abdomen: Soft, nontender, nondistended Extremities: Normal to inspection Skin: No rashes noted, no lesions or wounds seen Psych: Euthymic, normal affect Objective Data Vital Signs Vital Signs: Vital Signs - 24 hr 04/05/22 14:25 04/05/22 21:40 04/05/22 20:35 Temperature 98.3 F 98.3 F Pulse Rate 71 74 Respiratory Rate 24 H 22 H Blood Pressure 111/73 114/72 Pulse Oximetry 95 96 Oxygen Delivery Room Air 04/06/22 05:56 Temperature 97.5 F L Pulse Rate 73 Respiratory Rate 20 Blood Pressure 138/85 Pulse Oximetry 95 Oxygen Delivery Intake/Output
[2022-04-06 14:00] VITALS: BP 102/68; PULSE 82; RESP 22; TEMP 36.1; O2SAT 97
[2022-04-06 22:00] VITALS: BP 121/72; PULSE 68; RESP 17; TEMP 36.9; O2SAT 94
[2022-04-07 02:11] LABS: SARS-CoV-2 RNA PCR Negative
[2022-04-07 05:18] VITALS: BP 129/64; PULSE 65; RESP 17; TEMP 37.1; O2SAT 100
--- NOTE | 2022-04-07 07:57 | PM.IMPN ---
Progress Note: A&P Assessment and Plan (1) Dementia: Code(s): F03.90 - Unspecified dementia, unspecified severity, without behavioral disturbance, psychotic disturbance, mood disturbance, and anxiety Status: Acute Assessment and Plan: Patient is at baseline mentation, stable for discharge since at least 03/27/2022, not able to make decisions for himself based on info we have gathered on hand, will need HCPOA, currently being assessed by care coord (2) Hypokalemia: Code(s): E87.6 - Hypokalemia Status: Acute Assessment and Plan: Resolved (3) Alcohol abuse: Code(s): F10.10 - Alcohol abuse, uncomplicated Status: Acute Assessment and Plan: Stable (4) Hypertension: Code(s): I10 - Essential (primary) hypertension Status: Acute Assessment and Plan: controlled on no medications (5) Hyperlipidemia: Code(s): E78.5 - Hyperlipidemia, unspecified Status: Acute Assessment and Plan: Stable (6) Hypoalbuminemia: Code(s): E88.09 - Other disorders of plasma-protein metabolism, not elsewhere classified Status: Acute Assessment and Plan: Stable Plan 03/22/2022: Called and spoke with daughter and son, below: Kim [phone] Jm [phone] Patient has been estranged from his family for years, was in a long-term relationship with a girlfriend who recently dumped him. Currently has no one significant in his life who can make decisions for him and children are not interested in being guardians at this time. Therefore, patient will need to be deemed legally incompetent, possibly by Psychiatry and the legal guardian will need to be placed who can be patient's power of claims attorney. At that time, patient will need to establish residence in [place], confirm Medicare enrollment, and be placed in a memory care facility. I anticipate that an ethics committee will need to be initiated to start the process for this patient's guardianship and ultimately get him a safe discharge. See care coordination note for further details. Patient is medically safe for discharge since March 27, 2022. 04/05/22: Per care coord, patient to travel back to [place] in custody of son, Jm, to assisted living memory care in [place]. Facility is requiring a HCPOA which Jm is attempting to procure. 04/06: Case submitted to ethics committee as staying here on bedrest with a bed alarm for days on end is not in the patient's best interests and family has given us no end date for picking him up, but also withholding permission for us to pursue legal guardianship in [place]. This stay will likely not be reimbursed by insurance. 04/07: Patient to be d/c tomorrow to family friend. DVT prophylaxis with SCDs GI prophylaxis not indicated Code status full code Subjective Date/time seen: 04/07/22 07:57 Interval history: No overnight events noted. No chest pain or shortness of breath. No nausea, vomiting or diarrhea. No fevers or chills. Review of Systems Review of Systems: 12 point review of systems was assessed and was negative except as noted in the HPI Exam Narrative: General: No acute distress, alert and oriented per baseline HEENT: Atraumatic, normocephalic, mucous membranes moist CV: Regular rate and rhythm, S1, S2 Lungs: Clear to auscultation bilaterally, no rales or crackles noted, no wheezes, good air entry Abdomen: Soft, nontender, nondistended Extremities: Normal to inspection Skin: No rashes noted, no lesions or wounds seen Psych: Euthymic, normal affect Objective Data Vital Signs Vital Signs: Vital Signs - 24 hr 04/06/22 14:00 04/06/22 22:00 04/06/22 20:22 Temperature 97 F L 98.4 F Pulse Rate 82 68 Respiratory Rate 22 H 17 Blood Pressure 102/68 121/72 Pulse Oximetry 97 94 Oxygen Delivery Room Air 04/07/22 05:18 Temperature 98.7 F Pulse Rate 65 Respiratory Rate 17 Blood Pressure 129/64 Pulse
[2022-04-07 14:00] VITALS: BP 104/56; PULSE 100; RESP 16; TEMP 36.4; O2SAT 98
[2022-04-07 20:10] VITALS: PULSE 76; RESP 16; O2SAT 94
[2022-04-07] MEDS: DOCUSATE SODIUM 100 MG CAPSULE PO (21:22)
[2022-04-07 22:00] VITALS: BP 119/73; PULSE 76; RESP 16; TEMP 36.4; O2SAT 94
[2022-04-08 05:48] VITALS: BP 105/61; PULSE 72; RESP 12; TEMP 36.9; O2SAT 95
[2022-04-08 08:00] VITALS: PULSE 72; RESP 12; O2SAT 95
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
== END 2022-04-08 11:40 | disposition home or self-care (01) ==
LOC: ANHED 12:06 → ANH3MEDSUR 03-22 10:48
PROVIDERS: Internal Medicine; Nurse Practitioner; Admitting Provider Internal Medicine; Emergency Provider Emergency Medicine; Visit Provider Student in an Organized Health Care Education/Training Program
DX: F03.90 Unspecified dementia, unspecified severity, without behavioral disturbance, psychotic disturbance, mood disturbance, and anxiety (principal); E87.6 Hypokalemia; Y90.0 Blood alcohol level of less than 20 mg/100 ml; F10.10 Alcohol abuse, uncomplicated; I10 Essential (primary) hypertension; E78.5 Hyperlipidemia, unspecified; E88.09 Other disorders of plasma-protein metabolism, not elsewhere classified; I49.3 Ventricular premature depolarization; Z20.822 Contact with and (suspected) exposure to COVID-19; Z59.02 Unsheltered homelessness; Z86.73 Personal history of transient ischemic attack (TIA), and cerebral infarction without residual deficits
CPT/HCPCS: 36415; 70450; 70551; 71046; 80053; 80061; 80307; 81001; 82140; 82550; 82607; 82746; 82948; 83605; 83735; 83874; 84425; 84443; 84484; 85025; 85610; 85730; 93005; 96360; 96361; 96365; 96366; 97110; 97116; 97161; 97165; 97530; 99285; A9270; C9803; G0378; J3480; J7030; J7040; U0003; U0005